=== PATIENT | male | born 1975 | race Caucasian/White ===

== ENCOUNTER 2023-01-08 09:04 | Day surgery (SDC) | payer SELFPAY ==
[2023-01-08] MEDS ORDERED: LIDOCAINE HCL 1%, 10 MG/ML (20ML VIAL) ONE ×2 (09:21→11:48)
[2023-01-08] MEDS ORDERED: BACITRACIN ZINC 15 GM TUBE TOPICAL OINTMENT ONE (09:21)
[2023-01-08] MEDS ORDERED: EPINEPHrine/PF 1 MG/1 ML (1:1,000) AMPULE ONE ×2 (09:21→11:48)
[2023-01-08] MEDS ORDERED: PROPOFOL 20 ML ONE ×2 (11:08→14:07)
[2023-01-08] MEDS ORDERED: MIDAZOLAM HCL 2 MG/2 ML SINGLE DOSE VIAL ONE ×2 (11:08→14:07)
[2023-01-08] MEDS ORDERED: LIDOCAINE HCL/PF 2% SDV 5ML VIAL ONE (11:08)
[2023-01-08] MEDS ORDERED: DEXAMETHASONE SOD PHOSPHATE 4 MG/1 ML VIAL ONE (12:16)
[2023-01-08] MEDS ORDERED: ceFAZolin SODIUM 1 GM VIAL ONE (12:16)
[2023-01-08] MEDS ORDERED: ONDANSETRON 4 MG/2 ML VIAL ONE (13:48)
[2023-01-08] MEDS ORDERED: ONDANSETRON 4 MG/2 ML VIAL IVPUSH PRN (14:34)
[2023-01-08] MEDS ORDERED: oxyCODONE HCL 5 MG TABLET PO PRN (14:34)
[2023-01-08] MEDS ORDERED: ACETAMINOPHEN 1000 MG/100 ML BAG IVPB ONE (14:35)
[2023-01-08] MEDS ORDERED: KETOROLAC TROMETHAMINE 30 MG/1 ML VIAL IVPUSH ONE (14:35)
[2023-01-08] MEDS ORDERED: LACTATED RINGERS SOLUTION 1,000 ML IV SCH (14:45)
== END 2023-01-08 15:45 | disposition home or self-care (01) ==
LOC: FASU 09:04
PROVIDERS: ATTEND Surgery
PROC: 0J063ZZ Alteration of Chest Subcutaneous Tissue and Fascia, Percutaneous Approach (ICD-10-PCS; 2023-01-08)
PROC: 0H0V3ZZ Alteration of Bilateral Breast, Percutaneous Approach (ICD-10-PCS; principal; 2023-01-08 12:35)
DX: N62 Hypertrophy of breast (principal); E65 Localized adiposity
CPT/HCPCS: 94760